=== PATIENT | male | born 1965 | race Caucasian/White ===

== ENCOUNTER 2018-03-11 20:05 | Inpatient (IN) | payer MEDICAID ==
--- NOTE | 2018-03-11 21:54 | ED PDOC ---
Psych Transfer Clearance - Clearance Statement Clearance Statement: Vital signs, lab results and transfer papers reviewed on previous shift by Dr Niranjan Mosher. Patient is clinically stable for psychiatric admission.
[2018-03-11] MEDS ORDERED: Magnesium Hydroxide Susp 30 ml UD PO PRN (22:12)
[2018-03-11] MEDS ORDERED: DiphenhydrAMINE 50 mg/ml Inj IM PRN (22:12)
[2018-03-11] MEDS ORDERED: Alum-Mag Hydrox-Simethicone Susp (30 mL) PO PRN (22:12)
--- NOTE | 2018-03-11 22:25 | PCM.BM ---
<Roberta Farris - Last Filed: 03/11/18 22:23> Treatment Plan Problems - Problems identified on initial assessmt Auditory Hallucinations Date Initiated: 03/11/18 Time Initiated: 22:23 Assessment reference: NA Status: Active Medication nonadherence Date Initiated: 03/11/18 Time Initiated: 22:24 Assessment reference: NA Status: Active Ineffective Coping Date Initiated: 03/11/18 Time Initiated: 22:24 Assessment reference: NA Status: Active Treatment assets and liabiliti Patient Assests: cooperative, self-reliant, ADL independent, good support syst em, negotiates basic needs Patient Liabilities: substance abuse - Milieu Protocol Maintain good personal hygiene: every shift Encourage regular showers, every shift Remind patient to perform daily oral care Conduct patient checks and document Observation sheet: Q15 minutes Maintain personal safety: every shift Educate patient to report safety concerns to staff, every shift Monitor environment for contraband/sharps Medication safety: Monitor for expected outcome, potential side effects: every shift, Assess barriers to learning: every shift, Assess readiness for medication education: every shift <Kayode Thompson - Last Filed: 03/15/18 14:37> Treatment Plan Problems - Problems identified on initial assessmt Auditory Hallucinations Date Initiated: 03/11/18 Time Initiated: 22:23 Assessment reference: NA Status: Active Medication nonadherence Date Initiated: 03/11/18 Time Initiated: 22:24 Assessment reference: NA Status: Active Ineffective Coping Date Initiated: 03/11/18 Time Initiated: 22:24 Assessment reference: NA Status: Active Substance Use Date Initiated: 03/14/18 Time Initiated: 11:27 Assessment reference: NA Status: Active - Diagnosis (1) Cocaine abuse Status: Acute Interventions: motivational therapy 03/15/18 11:18
[2018-03-12 09:05] LABS: HDL CHOLESTEROL 53 MG/DL (30-70)
[2018-03-12 09:16] LABS: LDL CHOLESTEROL 110 mg/dL (0-129)
[2018-03-12 09:20] LABS: T4 8.32 ug/dl (5.5-11.0)
[2018-03-12] MEDS: Divalproex 500 mg DR(BID formulation) PO SCH ×2 (10:50→18:27)
[2018-03-12 10:58] VITALS: RESP 18
--- NOTE | 2018-03-12 12:26 | PCM.PSYCH ---
Initial Psychiatric Evaluation - Initial Psychiatric Evaluation Type of Admission: Voluntary Legal Status: Capacity Chief Complaint (in patient's own words): I am hearing voices telling me to kill somebody Patient's Reaction to Hospitalization: pt requsted help History of Present Illness and Precipitating Events: pt is 52 ys old male with previous diagnosis of schizoaffective disorder , cocaine abuse and alcohol abuse, hx of multiple inpatient hospiatalizations and hx of multiple incarcerations due to aggressive and assaultive behavior, pthas been non compliant with medications, relapsed on cocaine and alcohol, started experiencing command auditory hallucinations to hurt other people, started experiencing homicidal ideation, presented to ER seeking help on the unit pt continues to report auditory hallucinations, irritability and edginess denied suicidal ideation denied active homicidal thoughts on the unit Current Medications: Active Medications Generic Name Dose Route Start Last Admin Trade Name Freq PRN Reason Stop Dose Admin Acetaminophen 650 mg 03/11/18 22:12 Tylenol 325mg Tab PO Q4 PRN Pain, moderate (4-7) Al Hydrox/Mg Hydrox/Simethicone 30 ml 03/11/18 22:12 Maalox Plus 30 Ml PO Q4 PRN Dyspepsia Diphenhydramine HCl 50 mg 03/11/18 22:12 Benadryl IM Q6 PRN Extrapyramidal S/S Unable PO Diphenhydramine HCl 50 mg 03/11/18 22:12 Benadryl PO Q6 PRN Extrapyramidal Symptoms Diphenhydramine HCl 50 mg 03/11/18 22:17 Benadryl PO HS PRN Sleep Divalproex Sodium 500 mg 03/12/18 09:00 03/12/18 10:[address](*Bid*) PO 500 mg BID [facility]FFY Administration Haloperidol 5 mg 03/11/18 22:12 Haldol PO Q4 PRN Agitation Haloperidol Lactate 5 mg 03/11/18 22:12 Haldol IM Q4 PRN Agitation, Unable to Take PO Lorazepam 2 mg 03/11/18 22:12 Ativan IM Q4 PRN Anxiety/Agitation,Unable PO Lorazepam 1 mg 03/11/18 22:12 Ativan PO Q8 PRN Anxiety/Agitation Magnesium Hydroxide 30 ml 03/11/18 22:12 Milk Of Magnesia PO HS PRN Constipation Quetiapine Fumarate 50 mg 03/12/18 09:00 03/12/18 10:49 Seroquel PO 50 mg BID [facility] Administration Quetiapine Fumarate 200 mg 03/12/18 22:00 Seroquel PO HS [facility] Past Psychiatric History - Past Psychiatric History Explanation of prior treatment: multiple inpatient hospitalizations multiple incarcerations History of ETOH/Drug Use: hx of alcohol and cocaine use Pertinent Medical Hx (Current Medical&Sleep Prob, Allergies): Allergies Allergy/AdvReac Type Severity Reaction Status Date / Time Penicillins Allergy RASH Verified 05/27/17 03:29 shellfish derived Allergy RASH Verified 05/27/17 03:29 RX: Aspirin [Aspirin Chewable] 81 mg PO DAILY #7 chew 05/30/17 RX: FLUoxetine [Prozac] 20 mg PO DAILY #14 cap 05/30/17 RX: Nicotine 21 mg/24 hr [Nicoderm Cq] 1 patch TD DAILY #14 patch 05/30/17 RX: QUEtiapine [Seroquel] 100 mg PO HS #14 tab 05/30/17 RX: amLODIPine [Norvasc] 5 mg PO DAILY #7 tab 05/30/17 RX: traZODone [Desyrel] 50 mg PO HS PRN #14 tab 05/30/17 Mental Status Examination - Personal Presentation Personal Presentation: Looks stated age - Affect Affect: Constricted, Depressed Additional comments: irritable, angry and edgy - Motor Activity Motor Activity: Psychomotor Agitation - Reliability in Providing Information Reliability in Providing Information: Poor, due to alteration in thoughts, Poor, due to altered mood - Speech Speech: Relevant - Mood Mood: Anxious Additional comments: angry - Formal Thought Process Formal Thought Process: Hallucinations, Paranoia, Circumstantial Additional comments: pt reported auditory hallucinations, currently non command type - Hallucinations/Delusions Hallucinations: Visual - Obsessions/Compulsions Obsessions: No Compulsions: No - Cognitive Functions Orientation: Person, Place Sensorium: Alert Judgement: Imparied, as evidence by: Poor judgement, Imparied, as evidence by: Lack of insight into illness - Risk Risk: Homicidal, Diminished functioning - Strength & Assets Inventory Strength & Assets Inventory: Life experience - Limitations Additional comments: poor compliance DSM 5 DX - DSM 5 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
--- NOTE | 2018-03-12 14:40 | CARD ---
APPROVED REPORT Date of service: 03/12/2018 EKG Measurement Heart [id number] ID [id number] <Conclusion> Sinus bradycardia Early repolarization Otherwise normal ECG
[2018-03-13] MEDS: Divalproex 500 mg DR(BID formulation) PO SCH ×2 (09:36→18:13)
--- NOTE | 2018-03-13 16:59 | PCM.PYCHPN ---
Psychiatric Progress Note - Psychiatric Progress Note Patient seen today, length of contact: chart reviewed case discussed with team Patient Chief Complaint: command hallucination to harm someone resolved somewhat Problems Identified/Issues Discussed: alteration in mood alteration in cognition Medical Problems: per chart Diagnostic Results: per psychiatry per medicine per nursing per professor of social work per recreational therapy DSM 5 Symptoms Update: some improvement hallucinations Medication Change: No Medical Record Reviewed: No Consults ordered or reviewed: pt seen by hospitalist Mental Status Examination - Cognitive Function Orientation: Person, Place, Situation Attention: WNL Concentration: WNL Association: WNL Fund of Knowledge: WN Decription of patient's judgement and insights: impaired - Mood Mood: Anxious - Affect Affect: Constricted, Depressed - Formal Thought Process Formal Thought Process: Paranoia, Circumstantial - Homicidal Ideation Plan: denies current command hallucinations to harm others Goal/Treatment Plan - Goal/Treatment Plan Progress Toward Problem(s) and Goals/Treatment Plan: inpt milieu adjust meds per status vital signs and clinical assessment per protocol and per clinical status discharge planning in progress?giant steps Estimated Date of D/C: 03/17/18 - Smoking Cessation Smoking Cessation Initiated: No Reason for not providing: defers
[2018-03-14] MEDS: Divalproex 500 mg DR(BID formulation) PO SCH ×2 (09:35→17:49)
--- NOTE | 2018-03-14 11:27 | PCM.BM ---
Treatment Plan Problems - Problems identified on initial assessmt Auditory Hallucinations Date Initiated: 03/11/18 Time Initiated: 22:23 Assessment reference: NA Status: Active Medication nonadherence Date Initiated: 03/11/18 Time Initiated: 22:24 Assessment reference: NA Status: Active Ineffective Coping Date Initiated: 03/11/18 Time Initiated: 22:24 Assessment reference: NA Status: Active Substance Use Date Initiated: 03/14/18 Time Initiated: 11:27 Assessment reference: NA Status: Active Treatment assets and liabiliti Patient Assests: cooperative, self-reliant, ADL independent, good support system, negotiates basic needs Patient Liabilities: substance abuse - Milieu Protocol Maintain good personal hygiene: every shift Encourage regular showers, every shift Remind patient to perform daily oral care Conduct patient checks and document Observation sheet: Q15 minutes Maintain personal safety: every shift Educate patient to report safety concerns to staff, every shift Monitor environment for contraband/sharps Medication safety: Monitor for expected outcome, potential side effects: every shift, Assess barriers to learning: every shift, Assess readiness for medication education: every shift Milieu Narrative: inpt milieu adjust meds per status vital signs and clinical assessment per protocol and per clinical status discharge planning in progress?giant steps Discharge/Continuing Care - Treatment Team Participation Patient/Family/SO Statement: inpt milieu adjust meds per status vital signs and clinical assessment per protocol and per clinical status discharge planning in progress?giant steps
--- NOTE | 2018-03-14 19:26 | PCM.PYCHPN ---
Psychiatric Progress Note - Psychiatric Progress Note Patient seen today, length of contact: chart reviewed case discussed with team Patient Chief Complaint: reports feeling calmer less anxious denies being irritable denies desire to harm self or others. staff report pt. has been rx adherent. seen about unit. t Problems Identified/Issues Discussed: alteration in mood alteration in cognition Medical Problems: per chart Diagnostic Results: per psychiatry per medicine per nursing per social group worker per recreational therapy DSM 5 Symptoms Update: improving mood denies psychosis adherent with treatment Medication Change: No Medical Record Reviewed: No Consults ordered or reviewed: pt seen by hospitalist Mental Status Examination - Cognitive Function Orientation: Person, Place, Situation Attention: WNL Concentration: WNL Association: WNL Fund of Knowledge: [facility] Decription of patient's judgement and insights: impaired - Mood Mood: Anxious - Affect Affect: Constricted, Depressed - Formal Thought Process Formal Thought Process: Paranoia, Circumstantial - Suicidal Ideation Suicidal Ideation: No - Homicidal Ideation Homicidal Ideation: No Goal/Treatment Plan - Goal/Treatment Plan Progress Toward Problem(s) and Goals/Treatment Plan: inpt milieu adjust meds per status vital signs and clinical assessment per protocol and per clinical status discharge planning in progress?giant steps Estimated Date of D/C: 03/17/18 - Smoking Cessation Smoking Cessation Initiated: No Reason for not providing: denies
[2018-03-15] MEDS: Divalproex 500 mg DR(BID formulation) PO SCH (09:30)
[2018-03-15 09:37] VITALS: BP 101/60; PULSE 71; TEMP 98.5
--- NOTE | 2018-03-15 14:41 | PCM.PYCHDC ---
Mental Status Examination - Mental Status Examination Orientation: Person, Place Memory: Intact Mood: Neutral Affect: Broad Speech: Appropriate Attention: WNL Concentration: WNL Association: WNL Fund of Knowledge: WNL Formal Thought Process: No Impairment Description of patient's judgement and insight: partial insight , poor judgment Psychotic Thoughts and Behaviors: pt on discharge denied any psychotic symptoms, non elicited Suicidal Ideation: No Current Homicidal Ideation?: No Discharge Summary - Discharge Note Reason for Hospitalization: pt is 52 ys old male with previous diagnosis of schizoaffective disorder , cocaine abuse and alcohol abuse, hx of multiple inpatient hospiatalizations and hx of multiple incarcerations due to aggressive and assaultive behavior, pthas been non compliant with medications, relapsed on cocaine and alcohol, started experiencing command auditory hallucinations to hurt other people, started experiencing homicidal ideation, presented to ER seeking help on the unit pt continues to report auditory hallucinations, irritability and edginess denied suicidal ideation denied active homicidal thoughts on the unit Consultations:: List each consultation separately and include: 1. Reason for request. 2. Findings. 3. Follow-up Summary of Hospital Course include:: 1. Description of specific treatment plan utilized for patients during their course of treatmen. 2. Summarize the time- course for resolution of acute symptoms and/or regressed behaviors. 3. Describe issues identified and worked on during hospitalization. 4. Describe medication utilized. 5. Describe medical problems identified and treated. 6. Reassessment of suicide risk Summary of Hospital Course: pt ion admission was irritable, angry, expressed thomicidal thoughts in response to auditory hallucinations pt was started on depakote, it was increased to 500 mg bid and seroquel 300mg daily Motivational, group and supportive therapy provided, pt complied with treaatment, no reported side effects of medications on discharge mental status was stable, pt denied any current perceptual disturbances, denied suicidal or homicidal ideation follow up arranged by social work therapist at [facility] - Diagnosis (1) Cocaine abuse Current Visit: No Status: Acute Priority: High - Final Diagnosis (DSM 5) Condition upon Discharge: GOOD DSM 5: cocaine induced psychotic disorder cocaine use disorder antisocial personality disorder hx of schizoaffective disorder Disposition: HOME/ ROUTINE Prescriptions/Medication Reconciliation: Divalproex [Depakote DR(*BID*)] 500 mg PO BID 30 Days #60 tcp QUEtiapine [SEROquel] 200 mg PO HS 30 Days #30 tab QUEtiapine [SEROquel] 50 mg PO BID 30 Days #60 tab traZODone [Desyrel] 100 mg PO HS PRN 30 Days #30 tab PRN Reason: Insomnia - Antipsychotic Medications Pt discharged on 2 or more routine antipsychotic medications: No
== END 2018-03-15 15:15 | disposition home or self-care (01) | DRG 747 ==
LOC: H.ER 20:05 → UNDOADMIN 21:45 → H.PSYCH 21:45
PROVIDERS: ADMIT Psychiatry & Neurology Psychiatry; ATTEND Psychiatry & Neurology Psychiatry
PROC: GZHZZZZ Group Psychotherapy (ICD-10-PCS; principal; 2018-03-11)
PROC: HZ57ZZZ Individual Psychotherapy for Substance Abuse Treatment, Motivational Enhancement (ICD-10-PCS; 2018-03-11)
PROC: HZ59ZZZ Individual Psychotherapy for Substance Abuse Treatment, Supportive (ICD-10-PCS; 2018-03-11)
DX: F14.151 Cocaine abuse with cocaine-induced psychotic disorder with hallucinations (principal); F25.9 Schizoaffective disorder, unspecified; F60.2 Antisocial personality disorder; Z91.14 Patient's other noncompliance with medication regimen; R45.850 Homicidal ideations; Z88.0 Allergy status to penicillin; Z91.013 Allergy to seafood; G47.00 Insomnia, unspecified